=== PATIENT | female | born 1935 | race Caucasian/White ===

== ENCOUNTER 2018-05-23 16:24 | Emergency (ER) | payer MEDICARE, SELFPAY ==
[2018-05-23 16:50] VITALS: BP 150/89; PULSE 77; RESP 20; TEMP 36.8; O2SAT 98
--- NOTE | 2018-05-23 17:01 | ED_ITS ---
HPI - Animal Bite <AMBROCIO Biggs - Last Filed: 05/23/18 22:16> General Chief Complaint: Animal Bite Stated Complaint: dog bite right hand Time Seen by Provider: 05/23/18 17:01 Source: patient Mode of arrival: ambulatory Limitations: no limitations History of Present Illness HPI narrative: 83-year-old female history of hypertension is a nonsmoker here for complaint of animal bite to her right hand. She states that she was playing with her dog when her hand accidentally got caught on the dog's to last night. She reports having some redness to that area today. Bite was between the webbing between the thumb and the right index finger. She denies any drainage from the area. No fevers no chills. She denies any other injuries reported. She does not know her last tetanus shot. She reports that the dog's immunizations are up-to-date. No other injuries or concerns. Related Data Home Medications Medication Instructions Recorded Confirmed ACETAMINOPHEN 650 mg PO Q6HP PRN #0 tab 01/07/13 CALCIUM/VITAMIN D (OS-LAUREANO 500+D 1 ctb PO #0 ctb 01/07/13 500MG/400UNITS) [SALMON OIL W/OMAG 3] 3 tab PO QDAY #0 01/07/13 amlodipine 5 mg PO DAILY 05/23/18 05/23/18 losartan 50 mg PO BID 05/23/18 05/23/18 pravastatin 40 mg PO DAILY 05/23/18 05/23/18 Previous Rx's Medication Instructions Recorded acetaminophen-codeine 1 tab PO Q4HP PRN #15 tab 04/10/17 amoxicillin-pot clavulanate 1 tab PO BID #14 tab 05/23/18 [Augmentin] Allergies Allergy/AdvReac Type Severity Reaction Status Date / Time lisinopril [LISINOPRIL] AdvReac Mild COUGH Unverified 07/14/17 12:13 Review of Systems <AMBROCIO Biggs - Last Filed: 05/23/18 22:16> Constitutional Denies fatigue Eyes Denies change in vision, Denies eye discharge, Denies irritation and Denies loss of vision ENT Ears, Nose, Mouth, and Throat: Denies change in voice, Denies neck pain and Denies sore throat Cardiovascular Denies dyspnea and Denies dyspnea on exertion Respiratory Denies cough, Denies dyspnea, Denies dyspnea on exertion and Denies wheezing Gastrointestinal Gastrointestinal: Denies abdominal pain, Denies change in bowel habits, Denies diarrhea, Denies nausea and Denies vomiting Genitourinary Denies hematuria, Denies flank pain, Denies urinary incontinence and Denies urinary urgency Musculoskeletal Denies neck pain Comments: Dog bite right hand Integumentary/Breasts Denies pruritus, Denies erythema, Denies rash and Denies wounds Neurologic Denies confusion and Denies loss of vision Psychiatric Denies anxiety, Denies confusion, Denies depression, Denies homicidal ideation and Denies suicidal ideation Endocrine Denies fatigue and Denies flushing Hematologic/Lymphatic Denies easy bruising Allergic/Immunologic Denies wheezing PFSH <AMBROCIO Biggs - Last Filed: 05/23/18 22:16> Social History Smoking Status: Never smoker Social History Smoking Status: Never smoker Exam <AMBROCIO Biggs - Last Filed: 05/23/18 22:16> Initial Vital Signs Initial Vital Signs: Vital Signs Temperature 98.2 F 05/23/18 16:50 Pulse Rate 77 05/23/18 16:50 Respiratory Rate 20 05/23/18 16:50 Blood Pressure 150/89 H 05/23/18 16:50 Pulse Oximetry 98 05/23/18 16:50 Const General: cooperative and well developed Nutritional Appearance: well nourished Orientation: alert, awake, oriented x3 and not confused [facility] Mouth: oral mucosae normal and moist mucous membranes Eyes General: appearance normal, both eyes and all related structures Conjunctivae: conjunctivae normal Sclera: sclerae normal Pupils: PERRL EOM: EOM intact bilaterally Resp Effort & Inspection: normal respiratory effort, able to speak in complete sentences, no respiratory distress and no use of accessory muscles Auscultation: clear to auscultation bilaterally, no rales, no rhonchi and no wheezes Cardio Rate: regular rate Rhythm: regular rhythm Heart Sounds: no click, no gallops, no murmurs and no rubs Pulses: normal peripheral pulses Skin General: no rashes or lesions noted, No jaundice and No petechiae Neuro General: alert, oriented x3, gait normal and no focal motor deficits Speech: speech normal Extrem Other: 3-4 mm puncture wound to interdigital area between 1st and 2nd digits of right hand dorsal aspect. No induration and no fluctuance. Distal sensation is intact. Distal range of motion is intact. Erythema to the area. Distal cap r efill less than 2 sec. <Giselle Cain DO - Last Filed: 05/24/18 04:27> Initial Vital Signs Initial Vital Signs: Vital Signs Temperature 98.2 F 05/23/18 16:50 Pulse Rate 77 05/23/18 16:50 Respiratory Rate 20 05/23/18 16:50 Blood Pressure 150/89 H 05/23/18 16:50 Pulse Oximetry 98 05/23/18 16:50 Course <AMBROCIO Biggs - Last Filed: 05/23/18 22:16> Orders Ordered: Discontinued Medications Diphtheria/Tetanus/Acell Pertussis (Adacel) 0.5 ml IM .ONCE ONE Stop: 05/23/18 18:19 Last Admin: 05/23/18 18:39 Dose: 0.5 ml Vital Signs - 8 hr 05/23/18 16:50 05/23/18 19:33 Temperature 98.2 F 98.4 F Pulse Rate 77 77 Respiratory Rate 20 17 Blood Pressure 150/89 H Blood Pressure [Left Arm] 137/78 Pulse Oximetry 98 96 <Giselle Cain DO - Last Filed: 05/24/18 04:27> Orders Ordered: Discontinued Medications Diphtheria/Tetanus/Acell Pertussis (Adacel) 0.5 ml IM .ONCE ONE Stop: 05/23/18 18:19 Last Admin: 05/23/18 18:39 Dose: 0.5 ml Vital Signs - 8 hr 05/23/18 16:50 05/23/18 19:33 Temperature 98.2 F 98.4 F Pulse Rate 77 77 Respiratory Rate 20 17 Blood Pressure 150/89 H Blood Pressure [Left Arm] 137/78 Pulse Oximetry 98 96 MDM - Animal Bite <AMBROCIO Biggs - Last Filed: 05/23/18 22:16> Imaging Data Right hand : Radiologist's impression: [address] [address] XRay Report Signed Patient: Amna Chin EMR#: [id number] : [id number] Age/Sex: 83 / FDate of Service: 05/23/18 Loc: ED Accession Number: [id number] Procedure: XR hand RT min 3V Ordering Provider: Esvin Elena PROCEDURE: XR HAND RT MIN 3V INDICATIONS: Dog bite right hand TECHNIQUE: 3 views of the hand(s) acquired. COMPARISON: None. FINDINGS: Bones: No fractures or dislocations. Carpal bones are normally aligned. No suspicious bony lesions. 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 Soft tissues: No suspicious soft tissue calcifications. No radiopaque foreign bodies. IMPRESSION: No radiopaque foreign bodies. Dictated by: Camilla Ward M.D. on 05/23/2018 at 19:10 Approved by: Camilla Ward M.D. on 05/23/2018 at 19:12 [facility] Narrative Medical decision making narrative: X-ray the right hand was obtained was negative for any foreign bodies or fractures. Tetanus was updated in the emergency room today. She is covered for dog bite with Augmentin. [id number] Tylenol as needed for any discomfort. Follow up with primary care provider in the next few days for re-evaluation. For any worsening symptoms return to the emergency room. Discharge Plan Departure Patient Disposition: Home Clinical Impression: Dog bite Qualifiers: Encounter type: initial encounter Qualified Code(s): W54.0XXA - Bitten by dog, initial encounter Discharge Date/Time: 05/23/18 19:42 Interventions: ED Discharge Assessment Last Done: 05/23/18 19:37 Instructions: DI for Dog Bite Activity Restrictions/Additional Instructions: X-ray the right hand was obtained was negative for any fractures or foreign bodies. Tetanus was updated in the emergency room today. You are prescribed antibiotic to protect against an infection use as directed. Follow up with primary care provider next few days for re-evaluation. Use [id number] Tylenol as needed for any discomfort. For any worsening symptoms return to the emergency room. Prescriptions: New amoxicillin-pot clavulanate [Augmentin] 875-125 mg tablet 1 tab PO BID Qty: 14 RF: 0 No Action ACETAMINOPHEN 650 mg PO Q6HP PRNQty: 0 RF: 0 [SALMON OIL W/OMAG 3] 3 tab PO QDAY Qty: 0 RF: 0 CALCIUM/VITAMIN D (OS-LAUREANO 500+D 500MG/400UNITS) 1 ctb PO Qty: 0 RF: 0 acetaminophen-codeine 30 MG/300 MG tablet 1 tab PO Q4HP PRNQty: 15 RF: 0 losartan 50 mg tablet 50 mg PO BID RF: 0 pravastatin 40 mg tablet 40 mg PO DAILY RF: 0 amlodipine 5 mg tablet 5 mg PO DAILY RF: 0 Referrals: Martínez Lake MD [Primary Care Provider] - <Giselle Cain DO - Last Filed: 05/24/18 04:27> Cosign ED Attending Malikature Attestation: I was immediately available in the department for consultation. Documentation has been reviewed. I agree with assessment and plan.
--- NOTE | 2018-05-23 18:17 | DI.RAD.S_ITS ---
PROCEDURE: XR HAND RT MIN 3V INDICATIONS: Dog bite right hand TECHNIQUE: 3 views of the hand(s) acquired. COMPARISON: None. FINDINGS: Bones: No fractures or dislocations. Carpal bones are normally aligned. No suspicious bony lesions. 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 Soft tissues: No suspicious soft tissue calcifications. No radiopaque foreign bodies. IMPRESSION: No radiopaque foreign bodies. Dictated by: Camilla Ward M.D. on 05/23/2018 at 19:10 Approved by: Camilla Ward M.D. on 05/23/2018 at 19:12
[2018-05-23] MEDS: TET,DIPH,PERTUSS(ACELL),VAC/PF 0.5 ML SYRINGE IM (18:39)
[2018-05-23 19:33] VITALS: BP 137/78; PULSE 77; RESP 17; TEMP 36.9; O2SAT 96
--- NOTE | 2018-05-23 19:39 | PC.NURSE ---
No acute distress. Bandaid and bacitracin applied to wound. Bacitracin given for home use.
== END 2018-05-23 19:42 | disposition home or self-care (01) ==
PROVIDERS: Emergency Provider Nurse Practitioner Family; Family Provider Internal Medicine; PCP Internal Medicine
DX: S61.451A Open bite of right hand, initial encounter (principal); W54.0XXA Bitten by dog, initial encounter
CPT/HCPCS: 73130; 90471; 99282; 99283; 90715

== ENCOUNTER 2018-07-01 11:51 | Emergency (ER) | payer MEDICARE, SELFPAY ==
[2018-07-01 12:06] VITALS: BP 150/81; PULSE 80; RESP 14; TEMP 36.7; O2SAT 98
--- NOTE | 2018-07-01 15:10 | ED.ALLEREA ---
HPI - Allergic Reaction General Chief complaint: Allergic Reaction Stated complaint: Swollen face Time Seen by Provider: 07/01/18 15:08 Source: patient and family () Mode of arrival: ambulatory Limitations: no limitations History of Present Illness HPI narrative: This is an 83-year-old female comes in with complaint of swelling of the right side of her face. Patient and her both state that the swelling seemed to show up down by her lower jaw and has slowly worked its way upwards towards her eye. She has a little bit of discoloration underneath her eye. She has not had any fevers. She is not having any swelling of her mouth, lips or oropharynx. She has not had any hoarseness or changes to her voice. She states it is a little bit tender but not significantly so. She feels a little bit itchy on that side. She has not had any new contacts, soaps lotions or other changes. She was recently visiting [place] and flew back yesterday. She has not had similar symptoms in the past with her face but she has had swelling in her throat and mouth before. She does not take an ALONDRA inhibitor. She has not noticed if she is having any dry mouth. She has not had any sinus pressure or discomfort. No dental pain. Related Data Home Medications Medication Instructions Recorded Confirmed ACETAMINOPHEN 650 mg PO Q6HP PRN #0 tab 01/07/13 CALCIUM/VITAMIN D (OS-LAUREANO 500+D 1 ctb PO #0 ctb 01/07/13 500MG/400UNITS) [SALMON OIL W/OMAG 3] 3 tab PO QDAY #0 01/07/13 amlodipine 5 mg PO DAILY 05/23/18 07/01/18 losartan 50 mg PO BID 05/23/18 07/01/18 pravastatin 40 mg PO DAILY 05/23/18 07/01/18 Previous Rx's Medication Instructions Recorded acetaminophen-codeine 1 tab PO Q4HP PRN #15 tab 04/10/17 amoxicillin-pot clavulanate 1 tab PO BID #20 tab 07/01/18 [Augmentin] prednisone See Rx Instructions .ROUTE 07/01/18 .COMPLEX #12 tab Allergies Allergy/AdvReac Type Severity Reaction Status Date / Time lisinopril [LISINOPRIL] AdvReac Mild COUGH Verified 07/01/18 12:10 Review of Systems Review of Systems ROS Unobtainable: All systems reviewed & are unremarkable except as noted in HPI and below Constitutional Denies fever(s) ENT Ears, Nose, Mouth, and Throat: Reports as per HPI, Denies change in voice, Denies dental pain, Denies dry mouth, Denies otalgia, Reports facial pain (Very mild), Denies hoarseness, Denies lip swelling, Denies mouth lesions, Denies nasal congestion, Denies nasal discharge, Denies neck pain, Denies nose pain, Denies post nasal drip, Denies sinus pain, Denies sinus pressure, Denies sore throat, Denies throat swelling, Denies tongue swelling and Reports other (facial swelling, right jaw moving up towards eye) Cardiovascular Denies chest pain, Denies syncope, Denies lightheadedness and Denies dyspnea Respiratory Denies chest congestion, Denies dyspnea, Denies stridor and Denies wheezing Gastrointestinal Gastrointestinal: Denies abdominal pain, Denies change in bowel habits, Denies diarrhea, Denies nausea and Denies vomiting Musculoskeletal Denies neck pain Integumentary/Breasts Denies rash, Denies unusual bruising and Denies wounds Neurologic Denies syncope Allergic/Immunologic Denies lip swelling, Denies throat swelling, Denies tongue swelling and Denies wheezing PFSH Social History Smoking Status: Never smoker Social History Smoking Status: Never smoker Exam Narrative Exam Narrative: GEN: well nourished, well appearing female, alert and oriented x 3, patient appears to be in mild distress. HEENT: Atraumatic, pupils are equal round reactive to light, extraocular movements are intact, nares are clear, TMs are clear with no fluid, there is no conjunctival pallor. Throat is clear without any exudates, erythema, tonsillar enlargement or uvular deviation, patient has some mild facial swelling from the right mandibular region extending up towards the right eye, there is a little bit of slight discoloration underneath the right eye patient has some mild tenderness below the mandible. Um there is no discharge from the salivary duct. Patient does not have any swelling of lips, tongue or oropharynx. No hives or other rash noted. no hoarseness. HEART: Regular rate and rhythm without murmur, clicks, rubs. LUNGS:Lungs clear to auscultation, no wheezes, rales, crackles, chest moves symmetrically ABD:bowel sounds normal, soft, non-tender, no guarding, rebound, rigidity, no masses noted, no hepatosplenomegaly MSCL: Non-tender, full range of motion, normal gait NEURO:CN 2-12 intact, sensation normal Initial Vital Signs Initial Vital Signs: Vital Signs Temperature 98.1 F 07/01/18 12:06 Pulse Rate 80 07/01/18 12:06 Respiratory Rate 14 07/01/18 12:06 Blood Pressure 150/81 H 07/01/18 12:06 Pulse Oximetry 98 07/01/18 12:06 Course Orders Ordered: Discontinued Medications Prednisone (Deltasone) 40 mg PO NOW ONE Stop: 07/01/18 15:26 Last Admin: 07/01/18 15:30 Dose: 40 mg Vital Signs - 8 hr 07/01/18 12:06 07/01/18 15:39 Temperature 98.1 F Pulse Rate 80 78 Respiratory Rate 14 17 Blood Pressure 150/81 H Blood Pressure [Left Arm] 161/82 H Pulse Oximetry 98 97 MDM - Allergic Reaction MDM Narrative Medical decision making narrative: Discussed with patient the concerns would be for cellulitis, abscess whether infection could come from dental, sialadenitis, periorbital or other causes. Patient could be having allergic reaction or angioedema although it is more the skin and side of her face and her airway and oropharynx are not involved. I discussed with patient I suspect she may have some sialadenitis potentially of the salivary gland as patient tenderness started on the lower jaw been moving upwards according to her and her significant other. She is not having any dental pain or sinus discomfort. Discussed starting on some antibiotics. Also discussed doing a short course of steroids to help with any swelling and based on suspicion of possible sialadenitis lemon drop or very turbid candies to help stimulate salivary secretions. Discussed signs and symptoms to watch for and reasons to return patient and are comfortable with this plan. Discharge Plan Departure Patient Disposition: Home Clinical Impression: Sialadenitis Discharge Date/Time: 07/01/18 15:50 Interventions: ED Discharge Assessment Last Done: 07/01/18 15:50 Instructions: Parotitis Activity Restrictions/Additional Instructions: Follow up in the next week for recheck. Take antibiotics until gone. Continue steroids once daily until gone. You prescriptions were sent to [facility]. Suck on tart candies such as lemon candies to cause increased saliva production. Return to ER for fevers greater than 100.4F, worsening swelling of the face, new redness of the face, swelling of the throat, mouth or lips, hoarseness or difficulty with speech, vomiting, lightheadedness or passing out or other new or concerning symptoms. Prescriptions: New prednisone 10 mg tablet See Rx Instructions .ROUTE .COMPLEX Qty: 12 RF: 0 amoxicillin-pot clavulanate [Augmentin] 875-125 mg tablet 1 tab PO BID Qty: 20 RF: 0 No Action ACETAMINOPHEN 650 mg PO Q6HP PRNQty: 0 RF: 0 [SALMON OIL W/OMAG 3] 3 tab PO QDAY Qty: 0 RF: 0 CALCIUM/VITAMIN D (OS-LAUREANO 500+D 500MG/400UNITS) 1 ctb PO Qty: 0 RF: 0 acetaminophen-codeine 30 MG/300 MG tablet 1 tab PO Q4HP PRNQty: 15 RF: 0 losartan 50 mg tablet 50 mg PO BID RF: 0 pravastatin 40 mg tablet 40 mg PO DAILY RF: 0 amlodipine 5 mg tablet 5 mg PO DAILY RF: 0 Referrals: Martínez Lake MD [Primary Care Provider] -
[2018-07-01] MEDS: predniSONE 20 MG TABLET 40 MG PO (15:30)
--- NOTE | 2018-07-01 15:33 | PC.NURSE ---
Pt w/ right > left facial swelling. No airway compromise. No known allergen exposure. States right side of face feels 'tingly'. Easy work of breathing.
[2018-07-01 15:39] VITALS: BP 161/82; PULSE 78; RESP 17; O2SAT 97
== END 2018-07-01 15:50 | disposition home or self-care (01) ==
PROVIDERS: Emergency Provider Emergency Medicine; Family Provider Internal Medicine; PCP Internal Medicine
DX: K11.20 Sialoadenitis, unspecified (principal)
CPT/HCPCS: 99282; 99283

== ENCOUNTER → 2019-01-30 19:27 | Outpatient (CLI) | payer MEDICARE, SELFPAY ==
[2019-01-30 19:48] LABS: Influenza A and B by PCR Rapid Negative (Negative)
== END ==
PROVIDERS: Family Provider Internal Medicine; PCP Internal Medicine; Visit Provider Physician Assistant
DX: R68.89 Other general symptoms and signs (principal)
CPT/HCPCS: 87502

== ENCOUNTER 2020-04-05 14:37 | Emergency (ER) | payer MEDICARE, SELFPAY ==
[2020-04-05 14:43] VITALS: BP 140/65; PULSE 84; RESP 20; TEMP 36.3; O2SAT 95; BMI 25.3
[2020-04-05 15:17] LABS: COVID19 -Nasal RAPID Negative (Negative)
--- NOTE | 2020-04-05 19:46 | ED.URI ---
HPI - URI/Sore Throat General Chief Complaint: Upper Respiratory Symptoms Stated Complaint: runny nose,cough, wants a covid test Time Seen by Provider: 04/05/20 15:17 Source: patient Mode of arrival: Family Vehicle Limitations: no limitations History of Present Illness HPI Narrative: 84F non smoker with history of HTN presents with her and is requesting a COVID test. She said she has had runny nose, nasal congestion and sneezing for the past 2 days. She denies any fever chills. She has no sore throat cough or shortness of breath. She has had no GI symptoms such as nausea, vomiting or diarrhea. She denies any exposure to persons known to have COVID. MD Complaint: rhinorrhea and nasal congestion Onset (ago): minute(s) Duration: constant Severity: mild Relieving factors: nothing Exacerbating factors: nothing Description of mucous: clear Able to tolerate fluids by mouth: Yes Associated symptoms: denies other symptoms Related Data Home Medications Medication Instructions Recorded Confirmed ACETAMINOPHEN 650 mg PO Q6HP PRN #0 tab 01/07/13 CALCIUM/VITAMIN D (OS-LAUREANO 500+D 1 ctb PO #0 ctb 01/07/13 500MG/400UNITS) [SALMON OIL W/OMAG 3] 3 tab PO QDAY #0 01/07/13 amlodipine 5 mg PO DAILY 05/23/18 07/01/18 losartan 50 mg PO BID 05/23/18 07/01/18 pravastatin 40 mg PO DAILY 05/23/18 07/01/18 Previous Rx's Medication Instructions Recorded acetaminophen-codeine 1 tab PO Q4HP PRN #15 tab 04/10/17 prednisone See Rx Instructions .ROUTE 07/01/18 .COMPLEX #12 tab Allergies Allergy/AdvReac Type Severity Reaction Status Date / Time lisinopril [LISINOPRIL] AdvReac Mild COUGH Verified 04/05/20 14:53 Review of Systems Constitutional Constitutional: Denies chills, Denies fatigue, Denies fever(s), Denies frequent falls, Denies lethargy and Denies weakness Eyes Eyes: Denies change in vision, Denies eye discharge, Denies irritation and Denies loss of vision ENT Ears, Nose, Mouth, and Throat: Denies change in voice, Denies dizziness, Reports nasal congestion, Reports nasal discharge, Denies neck pain, Denies sore throat and Denies throat swelling Cardiovascular Cardiovascular: Denies chest pain, Denies irregular heart rhythm, Denies lightheadedness, Denies palpitations, Denies dyspnea, Denies dyspnea on exertion and Denies orthopnea Respiratory Respiratory: Denies dyspnea, Denies dyspnea on exertion and Denies wheezing Gastrointestinal Gastrointestinal: Denies abdominal pain, Denies change in bowel habits, Denies diarrhea, Denies nausea and Denies vomiting Musculoskeletal Musculoskeletal: Denies neck pain and Denies numbness Integumentary/Breasts Skin/Breast: Denies pruritus, Denies erythema, Denies rash and Denies wounds Neurologic Neurologic: Denies behavioral changes, Denies confusion, Denies dizziness, Denies frequent falls, Denies loss of vision, Denies numbness and Denies weakness Psychiatric Psychiatric: Denies anxiety, Denies behavioral changes, Denies confusion, Denies depression, Denies homicidal ideation and Denies suicidal ideation Endocrine Endocrine: Denies fatigue, Denies flushing and Denies palpitations Hematologic/Lymphatic Hematologic/Lymphatic: Denies easy bruising Allergic/Immunologic Allergic/Immunologic: Denies urticaria, Denies throat swelling and Denies wheezing Patient History Social History Smoking Status: Never smoker Smoking Status: Never smoker alcohol intake frequency: holidays/special occasions only Substance Use Type: does not use Exam Narrative Exam Narrative: GEN: AOx3 and in mild distress EYES: Pupils are equal, round, and reactive to light and accommodation. Extraoccular muscles are intact bilaterally. There is no subconjunctival hemorrhage or exudate. ENT: Clear nasal drainage bilateral nares. Mild posterior pharyngeal drip. No erythema, swelling or exudate CHEST: Lungs are clear to auscultation bilaterally and free of wheezes, rales, or rhonchi. Heart rate is regular rhythm, there are no murmurs, clicks, rubs, or gallops. There is no chest wall tenderness. ABD: Abdomen is soft and nontender. There is no guarding or rebound. Bowel sounds are normal in all 4 quadrants. There is no mass or organomegaly. EXT: Full painless ROM of all extremities with no loss of sensation or strength. SKIN: Warm, pink, and dry. No erythema or rash Initial Vital Signs Initial Vital Signs: Vital Signs Temperature 97.4 F L 04/05/20 14:43 Pulse Rate 84 04/05/20 14:43 Respiratory Rate 20 04/05/20 14:43 Blood Pressure 140/65 04/05/20 14:43 Pulse Oximetry 95 04/05/20 14:43 Course Orders Ordered: ED Orders 04/05/20 14:43 COVID19 Stat Vital Signs Vital signs: Vital Signs - 8 hr 04/05/20 14:43 Temperature 97.4 F L Pulse Rate 84 Respiratory Rate 20 Blood Pressure 140/65 Pulse Oximetry 95 MDM - URI/Sore Throat Lab Data Labs: Lab Results 04/05/20 Range/Units 14:43 SARS-CoV-2 (PCR) Negative (Negative) Discharge Plan Departure Patient Disposition: Home Clinical Impression: Upper respiratory virus Instructions: DI for Viral Upper Respiratory Infection -- Adult, Can COVID-19 be prevented? Activity Restrictions/Additional Instructions: *You have been diagnosed with [upper respiratory symptoms consistent with viral infection or seasonal allergies. Your COVID test was negative] *What to do: *Take medications as directed: Including [id number] antihistamine *Follow up with your primary care provider in 2-3 days, call for an appointment. Let them know you were seen in the Emergency Department and that we ask that you be seen in follow up *Return to ER if you should have any new, worsening or concerning symptoms, such as [shortness of breath, fever greater than 101 F, shaking chills or other bothersome symptoms] Prescriptions: No Action ACETAMINOPHEN 650 mg PO Q6HP PRNQty: 0 RF: 0 [SALMON OIL W/OMAG 3] 3 tab PO QDAY Qty: 0 RF: 0 CALCIUM/VITAMIN D (OS-LAUREANO 500+D 500MG/400UNITS) 1 ctb PO Qty: 0 RF: 0 acetaminophen-codeine 30 MG/300 MG tablet 1 tab PO Q4HP PRNQty: 15 RF: 0 losartan 50 mg tablet 50 mg PO BID RF: 0 pravastatin 40 mg tablet 40 mg PO DAILY RF: 0 amlodipine 5 mg tablet 5 mg PO DAILY RF: 0 prednisone 10 mg tablet See Rx Instructions .ROUTE .COMPLEX Qty: 12 RF: 0 Referrals: Martínez Lake MD [Primary Care Provider] -
== END 2020-04-05 15:42 | disposition home or self-care (01) ==
PROVIDERS: Emergency Provider Emergency Medicine; Family Provider Internal Medicine; PCP Internal Medicine
DX: J06.9 Acute upper respiratory infection, unspecified (principal); R09.81 Nasal congestion; Z20.822 Contact with and (suspected) exposure to COVID-19
CPT/HCPCS: 87635; 99281; 99282

== ENCOUNTER → 2020-05-03 10:51 | Outpatient (CLI) | payer MEDICARE, SELFPAY ==
[2020-05-03] MEDS: COVID-19 VACC #1, MRNA(MOD) 100 MCG/0.5 ML VIAL IM (10:57)
== END ==
PROVIDERS: Family Provider Internal Medicine; PCP Internal Medicine; Visit Provider Internal Medicine
DX: Z23 Encounter for immunization (principal)
CPT/HCPCS: 0011A; 91301

== ENCOUNTER → 2020-05-31 08:12 | Outpatient (CLI) | payer MEDICARE, SELFPAY ==
[2020-05-31] MEDS: COVID-19 VACC #2, MRNA(MOD) 100 MCG/0.5 ML VIAL IM (08:15)
== END ==
PROVIDERS: Family Provider Internal Medicine; PCP Internal Medicine; Visit Provider Internal Medicine
DX: Z23 Encounter for immunization (principal)
CPT/HCPCS: 0012A; 91301

== ENCOUNTER 2021-11-01 18:53 | Emergency (ER) | payer MEDICARE, SELFPAY ==
[2021-11-01 19:41] VITALS: BP 165/72; PULSE 99; RESP 18; TEMP 36.8; O2SAT 95; BMI 24.2
[2021-11-01 20:23] LABS: COVID19 -Nasal RAPID POSITIVE (Negative)
[2021-11-01 21:25] LABS: Add Manual Diff / Slide Review NO; Basophils Absolute Auto 0 /uL (0-100); Basophils Percent Auto 0.6 % (0-2); Eosinophils Absolute Auto 0 /uL (0-450); Eosinophils Percent Auto 0.4 % (2-4); Hematocrit 39.2 % (36-46); Hemoglobin 13.4 g/dL (12.0-16.0); Lymphocytes Absolute Auto 800 /uL (1100-4500); Lymphocytes Percent Auto 10.9 % (25-40); Mean Corpuscular HGB Conc 34.3 % (30-36); Mean Corpuscular Volume 90.4 fL (80-100); Monocytes Absolute Auto 900 /uL (0-900); Monocytes Percent Auto 11.9 % (3-14); Neutrophils Absolute Auto 5600 /uL (1500-7000); Neutrophils Percent Auto 76.2 % (50-75); Platelet Count 237 X10^3/uL (150-400); Red Blood Cell Count 4.34 X10^6/uL (4.0-5.2); Red Cell Distribution Width 13.6 % (11.6-14.8); White Blood Cell Count 7.4 X10^3/uL (4.5-11.0)
[2021-11-01 21:26] LABS: Alanine Aminotransferase 18 IU/L (<35); Albumin 4.6 g/dL (3.5-5.0); Albumin Globulin Ratio 1.4 (1.0-2.8); Alkaline Phosphatase 70 U/L (38-126); Aspartate Aminotransferase 28 IU/L (14-36); Bilirubin Total 0.5 mg/dL (0.2-1.3); Blood Urea Nitrogen 11 mg/dL (7-17); Calcium 8.9 mg/dL (8.4-10.2); Carbon Dioxide 27 mmol/L (22-32); Chloride 97 mmol/L (98-107); Estimated Glomerular Filt Rate > 60 mL/min (>60); Globulin 3.3 g/dL (1.7-4.1); Glucose 118 mg/dL (80-110); HEMOLYSIS < 15 (0-50); Potassium 3.8 mmol/L (3.4-5.1); Sodium 134 mmol/L (137-145); Total Protein 7.9 g/dL (6.3-8.2)
--- NOTE | 2021-11-01 21:53 | ED_ITS ---
HPI - URI/Sore Throat General Chief Complaint: Upper Respiratory Symptoms Stated Complaint: COVID + Time Seen by Provider: 11/01/21 21:39 Source: patient Mode of arrival: Ambulatory History of Present Illness HPI Narrative: Patient here with . Complains 4 days of cough cold congestion. Had vomiting today. Body aches and chills. Tested positive for COVID. Family doctor sent patient here for laboratory studies. Also to inquire about likely Paxlovid. Denies any dyspnea. Does feel weak and tired. No history of heart attack strokes or diabetes or lung disease. Not requiring oxygen. Related Data Home Medications Medication Instructions Recorded Confirmed ACETAMINOPHEN 650 mg PO Q6HP PRN #0 tabs 01/07/13 CALCIUM/VITAMIN D (OS-LAUREANO 500+D 1 ctb PO ##0 01/07/13 500MG/400UNITS) [SALMON OIL W/OMAG 3] 3 tab PO QDAY ##0 01/07/13 amlodipine 5 mg tablet 5 mg PO DAILY 05/23/18 07/01/18 losartan 50 mg tablet 50 mg PO BID 05/23/18 07/01/18 pravastatin 40 mg tablet 40 mg PO DAILY 05/23/18 07/01/18 Previous Rx's Medication Instructions Recorded acetaminophen 300 mg-codeine 30 mg 1 tab PO Q4HP PRN #15 tabs 04/10/17 tablet prednisone 10 mg tablet See Rx Instructions .Route 07/01/18 .COMPLEX #12 tabs ondansetron 4 mg disintegrating 4 mg PO Q8H PRN nausea and 11/01/21 tablet vomiting #10 tabs Allergies Allergy/AdvReac Type Severity Reaction Status Date / Time lisinopril [LISINOPRIL] AdvReac Mild COUGH Verified 04/05/20 14:53 Review of Systems Review of Systems Narrative: GENERAL: Positive for chills, fatigue, malaise, fever, sweats. HEENT: Denies sinus pain, ear pain, sore throat RESPIRATORY: Denies dyspnea, positive for cough CARDIOVASCULAR: Denies chest pain, palpitations GASTROINTESTINAL: Positive for nausea, vomiting, negative for abdominal pain : Denies dysuria, frequency, hematuria MUSCULOSKELETAL: Positive for muscle or bony pain SKIN: Denies rash, skin lesions NEUROLOGIC: Denies weakness, numbness ROS Unobtainable: All systems reviewed & are unremarkable except as noted in HPI and below Patient History Social History Smoking Status: Never smoker Smoking Status: Never smoker alcohol intake frequency: holidays/special occasions only Substance Use Type: does not use Exam Narrative Exam Narrative: GENERAL: in no distress, not toxic not dyspneic HEAD: Normocephalic. EYES: Pupils equal round No scleral icterus. ENT: Mucous membranes moist. NECK: Trachea midline. CARDIOVASCULAR: Regular rate and rhythm without murmurs RESPIRATORY: Clear to auscultation. Breath sounds equal bilaterally. No wheezes, rales, or rhonchi. Speaking full sentences. No respiratory distress GASTROINTESTINAL: Abdomen soft, non-tender bowel sounds present no peritoneal signs EXTREMITIES: No gross deformities. BACK: No flank tenderness. NEURO: AOx4. SKIN: Warm and dry PSYCH: Not anxious, is cooperative Initial Vital Signs Initial Vital Signs: Vital Signs Temperature 98.3 F 11/01/21 19:41 Pulse Rate 99 H 11/01/21 19:41 Respiratory Rate 18 11/01/21 19:41 Blood Pressure 165/72 H 11/01/21 19:41 Pulse Oximetry 95 11/01/21 19:41 Oxygen Delivery Method 11/01/21 19:41 Course Course Course Narrative: No new issues during course of stay Orders Ordered: ED Orders 11/01/21 21:54 XR chest 1V Stat Discontinued Medications Sodium Chloride (Normal Saline 0.9%) 1,000 mls @ 1,000 mls/hr IV BOLUS ONE Stop: 11/01/21 22:51 Last Infusion: 11/01/21 23:21 Dose: 0 mls/hr Documented By: Admin: 11/01/21 22:14 Dose: 1,000 mls/hr Documented By: AT Ondansetron HCl (Ondansetron 4 Mg/2 Ml Inj) 4 mg IV NOW ONE Stop: 11/01/21 21:53 Last Admin: 11/01/21 22:14 Dose: 4 mg Documented By: AT Reevaluation(s) Reevaluation #1: Reviewed with patient and regarding Paxlovid, it is EUA, an experimental use administration. Risks and benefits reviewed with them. At this time they do not desire to have this medication. They would like to wait through the weekend and contact family doctor in [place] on Wednesday. They do desire IV fluids and Zofran. Time: 21:58 Reevaluation #2: Patient feeling much better after IV fluids and Zofran. Reviewed x-ray with him. They desire discharge home. No prescription other than Zofran Time: 23:17 Vital Signs Vital signs: Vital Signs - 8 hr 11/01/21 19:41 Temperature 98.3 F Pulse Rate 99 H Respiratory Rate 18 Blood Pressure 165/72 H Pulse Oximetry 95 Oxygen Delivery Method Room Air MDM - URI/Sore Throat Differential Diagnosis Differential diagnosis: Likely upper respiratory infection, viral infection and other (Pneumonia/COVID infection) Lab Data Result diagrams: 11/01/21 20:50 11/01/21 20:50 Labs: Lab Results 11/01/21 11/01/21 11/01/21 Range/Units 19:48 20:50 20:50 WBC 7.4 (4.5-11.0) X10^3/uL RBC 4.34 (4.0-5.2) X10^6/uL Hgb 13.4 (12.0-16.0) g/dL Hct 39.2 (36-46) % MCV 90.4 (80-100) fL MCH 31.0 (26-34) PG MCHC 34.3 (30-36) % RDW 13.6 (11.6-14.8) % Plt Count 237 (150-400) X10^3/uL Neut % (Auto) 76.2 H (50-75) % Lymph % (Auto) 10.9 L (25-40) % Roosevelt % (Auto) 11.9 (3-14) % Eos % (Auto) 0.4 L (2-4) % Baso % (Auto) 0.6 (0-2) % Neut # (Auto) 5600 (9648-6683) /uL Lymph # (Auto) 800 L (4278-7224) /uL Roosevelt # (Auto) 900 (0-900) /uL Eos # (Auto) 0 (0-450) /uL Baso # (Auto) 0 (0-100) /uL Sodium 134 L (137-145) mmol/L Potassium 3.8 (3.4-5.1) mmol/L Chloride 97 L (98-107) mmol/L Carbon Dioxide 27 (22-32) mmol/L BUN 11 (7-17) mg/dL Creatinine 0.55 (0.52-1.04) mg/dL Estimated GFR > 60 (>60) mL/min BUN/Creatinine Ratio 20.0 (6-22) Glucose 118 H (80-110) mg/dL Calcium 8.9 (8.4-10.2) mg/dL Total Bilirubin 0.5 (0.2-1.3) mg/dL AST 28 (14-36) IU/L ALT 18 (<35) IU/L Alkaline Phosphatase 70 (38-126) U/L Total Protein 7.9 (6.3-8.2) g/dL Albumin 4.6 (3.5-5.0) g/dL Globulin 3.3 (1.7-4.1) g/dL Albumin/Globulin Ratio 1.4 (1.0-2.8) SARS-CoV-2 (PCR) Positive H (Negative) Imaging Data Chest x-ray: Radiologist's Impression: [address] [address] XRay Report Signed Patient: Amna Chin MR#: [id number] : 1935 Acct:[id number] Age/Sex: 86 / F Date of Service: 11/01/21 Loc: Accession Number: [id number] ?? Procedure: XR chest 1V Ordering Provider: Darci Johnson MD PROCEDURE:? XR CHEST 1V ? INDICATIONS:? Cough/cold ? TECHNIQUE:? One view of the chest was acquired.? ? COMPARISON:? None. ? FINDINGS:? ? Surgical changes and devices:? None.? ? Lungs and pleura:? Lungs are clear.? No pleural effusions or pneumothorax.? ? Mediastinum:? Mediastinal contours appear normal.? Heart size is normal.? ? Bones and chest wall:? No suspicious bony lesions.? Overlying soft tissues appear unremarkable.? ? IMPRESSION:? No acute cardiopulmonary process demonstrated radiographically. ? ? Dictated by: Jericho Burnett M.D. on 11/01/2021 at 22:34 ? ? Approved by: Jericho Burnett M.D. on 11/01/2021 at 22:35 ? MDM Narrative Medical decision making narrative: Appropriate for discharge home. Exam and laboratory studies and imaging are reassuring. No hypoxia. No pneumonia. Patient and do not want Paxlovid, the desire to follow up with family doctor on Wednesday in 2 days. Return precautions reviewed with them. Zofran prescribed. They desire discharge home Discharge Plan Departure Patient Disposition: Home Clinical Impression: COVID-19 Instructions: DI for COVID-19 (Suspected or Confirmed ) Activity Restrictions/Additional Instructions: Keep well hydrated. Continue Tylenol for any fever body aches and chills. See family doctor on Wednesday for re-evaluation. Return if worse if any questions or concerns. Return if any trouble breathing. Prescription for Zofran/nausea medication has been provided for you Prescriptions: New ondansetron 4 mg tablet,disintegrating 4 mg PO Q8H PRN (Reason: nausea and vomiting) Qty: 10 0RF No Action ACETAMINOPHEN 650 mg PO Q6HP PRNQty: 0 [SALMON OIL W/OMAG 3] 3 tab PO QDAY Qty: 0 CALCIUM/VITAMIN D (OS-LAUREANO 500+D 500MG/400UNITS) 1 ctb PO Qty: 0 acetaminophen-codeine 30 MG/300 MG tablet 1 tab PO Q4HP PRNQty: 15 0RF losartan 50 mg tablet 50 mg PO BID pravastatin 40 mg tablet 40 mg PO DAILY amlodipine 5 mg tablet 5 mg PO DAILY prednisone 10 mg tablet See Rx Instructions .ROUTE .COMPLEX Qty: 12 0RF Rx Instructions: Take 3 tablets daily x 2 days, then 2 tablets daily x 2 days, then 1 tablet x 2 days. Referrals: Martínez Lake MD [Primary Care Provider] - Visit Report Forms: Patient Portal/API
--- NOTE | 2021-11-01 21:54 | DI.RAD.S_ITS ---
PROCEDURE: XR CHEST 1V INDICATIONS: Cough/cold TECHNIQUE: One view of the chest was acquired. COMPARISON: None. FINDINGS: Surgical changes and devices: None. Lungs and pleura: Lungs are clear. No pleural effusions or pneumothorax. Mediastinum: Mediastinal contours appear normal. Heart size is normal. Bones and chest wall: No suspicious bony lesions. Overlying soft tissues appear unremarkable. IMPRESSION: No acute cardiopulmonary process demonstrated radiographically. Dictated by: Jericho Burnett M.D. on 11/01/2021 at 22:34 Approved by: Jericho Burnett M.D. on 11/01/2021 at 22:35
[2021-11-01] MEDS: SODIUM CHLORIDE 0.9% 1,000 ML 1000 ML IV (22:14)
[2021-11-01] MEDS: ONDANSETRON 4 MG/2 ML INJ IV (22:14)
== END 2021-11-01 23:24 | disposition home or self-care (01) ==
PROVIDERS: Emergency Provider Emergency Medicine; Family Provider Internal Medicine; PCP Internal Medicine
DX: U07.1 COVID-19 (principal)
CPT/HCPCS: 36415; 71045; 80053; 85025; 87635; 96361; 96374; 99284; C9803; J2405

== ENCOUNTER 2022-03-24 11:44 | Emergency (ER) | payer MEDICARE, SELFPAY ==
[2022-03-24 11:49] VITALS: BP 161/77; PULSE 109; RESP 18; TEMP 36.8; O2SAT 96; BMI 25.0
--- NOTE | 2022-03-24 14:58 | DI.RAD.S_ITS ---
PROCEDURE: XR ACUTE ABDOMEN SERIES INDICATIONS: persistant vomiting TECHNIQUE: One view chest and two views of the abdomen were acquired. COMPARISON: [facility], CT, ABDOMEN/PELVIS WITH CONTRAST, 09/12/2013, 17:22. FINDINGS: Surgical changes and devices: There is prior right shoulder arthroplasty. Chest: Lungs are clear. Heart size is normal. No pleural effusions. No pneumoperitoneum. Abdomen: Bowel gas pattern is nonobstructive. Large amount of fecal matter throughout the colon is seen extending to rectum. Multiple round calcifications are seen projecting in right upper quadrant abdomen which could represent gallstones. Visualized solid organ contours appear normal. Bones: No suspicious bony lesions. IMPRESSION: Suggestion of moderate constipation and fecal impaction. No gross free air. Likely cholelithiasis which was also seen on previous CT study from 2013. No acute cardiopulmonary pathology. Dictated by: Devante Rapp M.D. on 03/24/2022 at 15:41 Approved by: Devante Rapp M.D. on 03/24/2022 at 15:42
[2022-03-24 15:05] LABS: Add Manual Diff / Slide Review NO; Basophils Absolute Auto 100 /uL (0-100); Basophils Percent Auto 0.5 % (0-2); Eosinophils Absolute Auto 0 /uL (0-450); Eosinophils Percent Auto 0.2 % (2-4); Hematocrit 43.1 % (36-46); Hemoglobin 14.1 g/dL (12.0-16.0); Lymphocytes Absolute Auto 900 /uL (1100-4500); Lymphocytes Percent Auto 5.9 % (25-40); Mean Corpuscular HGB Conc 32.6 % (30-36); Mean Corpuscular Hemoglobin 30.3 PG (26-34); Mean Corpuscular Volume 92.9 fL (80-100); Monocytes Absolute Auto 500 /uL (0-900); Neutrophils Absolute Auto 13500 /uL (1500-7000); Neutrophils Percent Auto 90.4 % (50-75); Platelet Count 334 X10^3/uL (150-400); Red Blood Cell Count 4.65 X10^6/uL (4.0-5.2); Red Cell Distribution Width 13.5 % (11.6-14.8)
--- NOTE | 2022-03-24 15:18 | PC.NURSE ---
COVID swab performed at this time
--- NOTE | 2022-03-24 15:20 | PC.NURSE ---
to radiology via stretcher with tech
[2022-03-24 15:24] LABS: Alanine Aminotransferase 23 IU/L (<35); Albumin 4.7 g/dL (3.5-5.0); Albumin Globulin Ratio 1.3 (1.0-2.8); Alkaline Phosphatase 78 U/L (38-126); Aspartate Aminotransferase 27 IU/L (14-36); BUN Creatinine Ratio 25.5 (6-22); Bilirubin Total 0.5 mg/dL (0.2-1.3); Blood Urea Nitrogen 14 mg/dL (7-17); Calcium 9.4 mg/dL (8.4-10.2); Carbon Dioxide 26 mmol/L (22-32); Chloride 100 mmol/L (98-107); Estimated Glomerular Filt Rate > 60 mL/min (>60); Globulin 3.7 g/dL (1.7-4.1); Glucose 139 mg/dL (80-110); HEMOLYSIS < 15 (0-50); Lipase 53 U/L (23-300); Potassium 3.9 mmol/L (3.4-5.1); Sodium 139 mmol/L (137-145); Total Protein 8.4 g/dL (6.3-8.2)
--- NOTE | 2022-03-24 15:35 | PC.NURSE ---
Returns to the ER from radiology
[2022-03-24 16:10] LABS: Influenza A - CEPHEID Flu A NEGATIVE (NEGATIVE); Influenza B - CEPHEID Flu B NEGATIVE (NEGATIVE); Respiratory Syncytial Virus Negative (Negative)
[2022-03-24 16:11] LABS: COVID-19 CEPHEID 4-PLEX PCR Negative (Negative)
--- NOTE | 2022-03-24 16:20 | DI.CT.S_ITS ---
PROCEDURE: CT ABDOMEN PELVIS W CON INDICATIONS: vomiting TECHNIQUE: After the administration of intravenous contrast, axial sections acquired from the lung bases to the pubic symphysis. Coronal and sagittal reformats were performed. For radiation dose reduction, the following was used: automated exposure control, adjustment of mA and/or kV according to patient size. COMPARISON: [facility], CT, ABDOMEN/PELVIS WITH CONTRAST, 09/12/2013, 17:22. FINDINGS: Lower thorax: The lung bases are clear. Heart size normal. No hiatal hernia. Liver: Subcentimeter hypodensities likely reflects cysts. No focal mass lesion Biliary system: Calcified stones noted in the lumen of the gallbladder. No pericholecystic inflammatory change. No intra or extrahepatic bile duct dilation. Pancreas: Unremarkable without mass or inflammation evident. Spleen: Normal in size and density. Adrenals: Normal morphology and density. Reproductive system: Left adnexal cyst measures 3 cm. No free fluid. . Urinary system: Normal renal size and attenuation. No renal calculi, hydronephrosis, or solid mass present. Urinary bladder unremarkable. Gastrointestinal system: The bowel is unremarkable without evidence of bowel obstruction or inflammation. The stomach appears unremarkable. Multiple diverticula arise from the sigmoid colon without evidence of diverticulitis. Moderate fecal debris in the left colon. Focal wall thickening in the mid transverse colon noted on image 2/42 Appendix: No findings to suggest acute appendicitis. Peritoneal spaces: No mesenteric or retroperitoneal adenopathy. No free air. No free fluid. Vasculature: Aortic atherosclerotic vascular calcification noted without evidence of aneurysm. Abdominal wall: Abdominal wall intact without evidence of ventral or inguinal hernias. Musculoskeletal: Normal bone mineralization. Degenerative disc disease and arthropathy noted in lower lumbar spine. No acute fractures. IMPRESSION: 1. No acute CT findings in the abdomen and pelvis. 2. Focal circumferential wall thickening in the mid transverse colon may reflect peristalsis. Nevertheless, consider follow-up CT or direct visualization when patient condition improves to exclude underlying neoplasm. 3. Additional chronic findings as above Approved by: Addison Andrade M.D. on 03/24/2022 at 15:46
--- NOTE | 2022-03-24 16:22 | ED.NAVMDI ---
HPI - Nausea/Vomiting/Diarrhea General Chief complaint: Nausea/Vomiting/Diarrhea Stated complaint: throwing up bile since 6am Time Seen by Provider: 03/24/22 16:14 Source: patient Mode of arrival: Ambulatory History of Present Illness HPI Narrative: Patient is a 86-year-old female history of hypertension appendectomy presenting today with vomiting. She said she was in her normal state of health yesterday. This morning she started vomiting she is unable to keep anything down. She denies any fever or chills. She is absolutely no chest pain or shortness of breath. She denies any constipation saying that she is had bowel movements but it is not diarrhea. Related Data Home Medications Medication Instructions Recorded Confirmed ACETAMINOPHEN 650 mg PO Q6HP PRN #0 tabs 01/07/13 CALCIUM/VITAMIN D (OS-LAUREANO 500+D 1 ctb PO ##0 01/07/13 500MG/400UNITS) [SALMON OIL W/OMAG 3] 3 tab PO QDAY ##0 01/07/13 amlodipine 5 mg tablet 5 mg PO DAILY 05/23/18 07/01/18 losartan 50 mg tablet 50 mg PO BID 05/23/18 07/01/18 pravastatin 40 mg tablet 40 mg PO DAILY 05/23/18 07/01/18 Previous Rx's Medication Instructions Recorded acetaminophen 300 mg-codeine 30 mg 1 tab PO Q4HP PRN #15 tabs 04/10/17 tablet prednisone 10 mg tablet See Rx Instructions .Route 07/01/18 .COMPLEX #12 tabs ondansetron 4 mg disintegrating 4 mg PO Q8H PRN nausea and 11/01/21 tablet vomiting #10 tabs cephalexin 500 mg capsule 500 mg PO BID 7 days #14 caps 03/24/22 ondansetron 4 mg disintegrating 4 mg PO Q8H PRN nausea and 03/24/22 tablet vomiting #10 tabs Allergies Allergy/AdvReac Type Severity Reaction Status Date / Time lisinopril [LISINOPRIL] AdvReac Mild COUGH Verified 04/05/20 14:53 Review of Systems Review of Systems Narrative: GENERAL: Denies chills, fatigue, malaise, fever, sweats, travel HEENT: Denies sinus pain, ear pain, sore throat, difficulty swallowing, neck pain RESPIRATORY: Denies dyspnea, cough, wheezing, hemoptysis, sputum. CARDIOVASCULAR: Denies chest pain, palpitations, orthopnea, edema GASTROINTESTINAL: See HPI : Denies dysuria, frequency, incontinence, hematuria, urinary retention, flank pain. MUSCULOSKELETAL: Denies weakness, joint pain, or bony pain SKIN: No rash, no erythema, no pruritus NEUROLOGIC: Denies weakness, dizziness, headache, numbness, change in speech, confusion PSYCHIATRIC: No concerning psychosocial issues. 12 point review of systems is negative except for those stated above and HPI Patient History Social History Smoking Status: Never smoker Smoking Status: Never smoker alcohol intake frequency: holidays/special occasions only Substance Use Type: does not use Exam Initial Vital Signs Initial Vital Signs: Vital Signs Temperature 98.2 F 03/24/22 11:49 Pulse Rate 109 H 03/24/22 11:49 Respiratory Rate 18 03/24/22 11:49 Blood Pressure 161/77 H 03/24/22 11:49 Pulse Oximetry 96 03/24/22 11:49 Oxygen Delivery Method 03/24/22 11:49 GENERAL: Adorable 86-year-old female HEENT: Head atraumatic,EOMI, pupils reactive, face symmetric, [moist] mucous membranes CARDIOVASCULAR: Regular rate and rhythm without murmurs, rubs or gallops. RESPIRATORY: Breath sounds equal bilaterally, no wheezes rales or rhonchi. ABDOMEN: Soft, nondistended no guarding no rebound no localization of pain EXTREMITIES: Normal range of motion, no clubbing or edema. Neurovascularly intact NEUROLOGICAL: Alert and oriented x4. SKIN: Warm, dry, no laceration, no petechiae, no rashes or lesions. Course Orders Ordered: Discontinued Medications Sodium Chloride (Normal Saline 0.9%) 1,000 mls @ 1,000 mls/hr IV BOLUS ONE Stop: 03/24/22 17:13 Last Infusion: 03/24/22 17:45 Dose: 0 mls/hr Documented By: Admin: 03/24/22 16:42 Dose: 1,000 mls/hr Documented By: GUICHO Ceftriaxone Sodium 1,000 mg/ (Sodium Chloride) 100 mls @ 200 mls/hr IV NOW ONE Stop: 03/24/22 18:33 Last Admin: 03/24/22 18:42 Dose: 200 mls/hr Documented By: SB Ondansetron HCl (Ondansetron 4 Mg Odt) 4 mg PO NOW PRN PRN Reason: Nausea And Vomiting Ondansetron HCl (Ondansetron 4 Mg/2 Ml Inj) 4 mg IV NOW PRN PRN Reason: Nausea And Vomiting Ondansetron HCl (Ondansetron 4 Mg Odt Prepack) 1 bottle MISC SEEINSTR ONE Stop: 03/24/22 18:34 Last Admin: 03/24/22 18:43 Dose: 1 bottle Documented By: SHAHEED Vital Signs Vital signs: Vital Signs - 8 hr 03/24/22 11:49 Temperature 98.2 F Pulse Rate 109 H Respiratory Rate 18 Blood Pressure 161/77 H Pulse Oximetry 96 Oxygen Delivery Method Room Air MDM - Nausea/Vomiting/Diarrhea Lab Data Result diagrams: 03/24/22 14:54 03/24/22 14:54 Labs: Lab Results 03/24/22 03/24/22 03/24/22 Range/Units 14:54 14:54 14:54 WBC 15.0 H (4.5-11.0) X10^3/uL RBC 4.65 (4.0-5.2) X10^6/uL Hgb 14.1 (12.0-16.0) g/dL Hct 43.1 (36-46) % MCV 92.9 (80-100) fL MCH 30.3 (26-34) PG MCHC 32.6 (30-36) % RDW 13.5 (11.6-14.8) % Plt Count 334 (150-400) X10^3/uL Neut % (Auto) 90.4 H (50-75) % Lymph % (Auto) 5.9 L (25-40) % [place] % (Auto) 3.0 (3-14) % Eos % (Auto) 0.2 L (2-4) % Baso % (Auto) 0.5 (0-2) % Neut # (Auto) 96112 H (0752-9684) /uL Lymph # (Auto) 900 L (6137-7062) /uL [place] # (Auto) 500 (0-900) /uL Eos # (Auto) 0 (0-450) /uL Baso # (Auto) 100 (0-100) /uL Sodium 139 (137-145) mmol/L Potassium 3.9 (3.4-5.1) mmol/L Chloride 100 (98-107) mmol/L Carbon Dioxide 26 (22-32) mmol/L BUN 14 (7-17) mg/dL Creatinine 0.55 (0.52-1.04) mg/dL Estimated GFR > 60 (>60) mL/min BUN/Creatinine Ratio 25.5 H (6-22) Glucose 139 H (80-110) mg/dL Lactate 1.9 (0.7-2.1) mmol/L Calcium 9.4 (8.4-10.2) mg/dL Total Bilirubin 0.5 (0.2-1.3) mg/dL AST 27 (14-36) IU/L ALT 23 (<35) IU/L Alkaline Phosphatase 78 (38-126) U/L Total Protein 8.4 H (6.3-8.2) g/dL Albumin 4.7 (3.5-5.0) g/dL Globulin 3.7 (1.7-4.1) g/dL Albumin/Globulin Ratio 1.3 (1.0-2.8) Lipase 53 (23-300) U/L Urine RBC (0-5/HPF) Urine WBC (0-5/HPF) Ur Squamous Epith Cells (0-5/HPF) Urine Bacteria (None) SARS-CoV-2 (PCR) (Negative) Influenza A (RT-PCR) (NEGATIVE) Influenza B (RT-PCR) (NEGATIVE) RSV (PCR) (Negative) 03/24/22 03/24/22 Range/Units 15:18 18:15 WBC (4.5-11.0) X10^3/uL RBC (4.0-5.2) X10^6/uL Hgb (12.0-16.0) g/dL Hct (36-46) % MCV (80-100) fL MCH (26-34) PG MCHC (30-36) % RDW (11.6-14.8) % Plt Count (150-400) X10^3/uL Neut % (Auto) (50-75) % Lymph % (Auto) (25-40) % [place] % (Auto) (3-14) % Eos % (Auto) (2-4) % Baso % (Auto) (0-2) % Neut # (Auto) (2464-9696) /uL Lymph # (Auto) (9106-9939) /uL [place] # (Auto) (0-900) /uL Eos # (Auto) (0-450) /uL Baso # (Auto) (0-100) /uL Sodium (137-145) mmol/L Potassium (3.4-5.1) mmol/L Chloride (98-107) mmol/L Carbon Dioxide (22-32) mmol/L BUN (7-17) mg/dL Creatinine (0.52-1.04) mg/dL Estimated GFR (>60) mL/min BUN/Creatinine Ratio (6-22) Glucose (80-110) mg/dL Lactate (0.7-2.1) mmol/L Calcium (8.4-10.2) mg/dL Total Bilirubin (0.2-1.3) mg/dL AST (14-36) IU/L ALT (<35) IU/L Alkaline Phosphatase (38-126) U/L Total Protein (6.3-8.2) g/dL Albumin (3.5-5.0) g/dL Globulin (1.7-4.1) g/dL Albumin/Globulin Ratio (1.0-2.8) Lipase (23-300) U/L Urine RBC 1-5/hpf (0-5/HPF) Urine WBC 5-10/hpf H (0-5/HPF) Ur Squamous Epith Cells 5-10 /hpf H (0-5/HPF) Urine Bacteria Moderate (10-30) H (None) SARS-CoV-2 (PCR) Negative (Negative) Influenza A (RT-PCR) Flu a negative (NEGATIVE) Influenza B (RT-PCR) Flu b negative (NEGATIVE) RSV (PCR) Negative (Negative) Urine Dip Bedside Urine Glucose Negative Bedside Urine Bilirubin - Negative Bedside Urine Ketone - Negative Urine Specific [place] 1.015 Bedside Urine Occult Blood +/- Bedside Urine pH 6.0 Bedside Urine Protein + 30 Bedside Urine Urobilinogen - Negative Bedside Urine Nitrite - Negative Bedside Urine Leukocytes ++ 125 Esterase Imaging Data Abdominal x-ray: Radiologist's Impression: XRay Report Signed Patient: Amna Chin MR#: [id number] : 1935 Acct:[id number] Age/Sex: 86 / F Date of Service: 03/24/22 Loc: ED Accession Number: [id number] ?? Procedure: XR acute abdomen series Ordering Provider: Giselle Cain D.O. PROCEDURE:? XR ACUTE ABDOMEN SERIES ? INDICATIONS:? persistant vomiting ? TECHNIQUE:? One view chest and two views of the abdomen were acquired.? ? COMPARISON:? [facility], CT, ABDOMEN/PELVIS WITH CONTRAST, 09/12/2013, 17:22. ? FINDINGS:? ? Surgical changes and devices:? There is prior right shoulder arthroplasty. ? Chest:? Lungs are clear.? Heart size is normal.? No pleural effusions.? No pneumoperitoneum.? ? Abdomen:? Bowel gas pattern is nonobstructive.? Large amount of fecal matter throughout the colon is seen extending to rectum.? Multiple round calcifications are seen projecting in right upper quadrant abdomen which could represent gallstones.? Visualized solid organ contours appear normal.? ? Bones:? No suspicious bony lesions.? ? IMPRESSION:? Suggestion of moderate constipation and fecal impaction.? No gross free air. ?Likely cholelithiasis which was also seen on previous CT study from 2013. No acute cardiopulmonary pathology.? ? ? Dictated by: Devante Rapp M.D. on 03/24/2022 at 15:41 ? ? Approved by: Devante Rapp M.D. on 03/24/2022 at 15:42 ? CT scan - abdomen/pelvis: Radiologist's Impression: Acct:[id number] Age/Sex: 86 / F Date of Service: 03/24/22 Loc: ED Accession Number: [id number] ?? Procedure: CT abdomen pelvis w con Ordering Provider: Giselle Cain D.O. PROCEDURE:? CT ABDOMEN PELVIS W CON ? INDICATIONS:? vomiting ? TECHNIQUE:? After the administration of intravenous contrast, axial sections acquired from the lung bases to the pubic symphysis.? Coronal and sagittal reformats were performed.? For radiation dose reduction, the following was used:? automated exposure control, adjustment of mA and/or kV according to patient size.? ? COMPARISON:? [facility], CT, ABDOMEN/PELVIS WITH CONTRAST, 09/12/2013, 17:22. ? FINDINGS: ? Lower thorax: The lung bases are clear.? Heart size normal.? No hiatal hernia. ? Liver:? Subcentimeter hypodensities likely reflects cysts.? No focal mass lesion ? Biliary system:? Calcified stones noted in the lumen of the gallbladder.? No pericholecystic inflammatory change.? No intra or extrahepatic bile duct dilation. ? Pancreas:? Unremarkable without mass or inflammation evident. ? Spleen:? Normal in size and density. ? Adrenals:? Normal morphology and density. ? Reproductive system:? Left adnexal cyst measures 3 cm.? No free fluid. . ? Urinary system:? Normal renal size and attenuation. No renal calculi, hydronephrosis, or solid mass present.? Urinary bladder unremarkable. ? Gastrointestinal system:? The bowel is unremarkable without evidence of bowel obstruction or inflammation. The stomach appears unremarkable.? Multiple diverticula arise from the sigmoid colon without evidence of diverticulitis.? Moderate fecal debris in the left colon.? Focal wall thickening in the mid transverse colon noted on image 2/42 ? Appendix:? No findings to suggest acute appendicitis. ? Peritoneal spaces:? No mesenteric or retroperitoneal adenopathy.? No free air.? No free fluid.? ? Vasculature:? Aortic atherosclerotic vascular calcification noted without evidence of aneurysm. ? Abdominal wall:? Abdominal wall intact without evidence of ventral or inguinal hernias. ? Musculoskeletal:? Normal bone mineralization.? Degenerative disc disease and arthropathy noted in lower lumbar spine.? No acute fractures.? ? IMPRESSION: ? 1. No acute CT findings in the abdomen and pelvis. ? 2. Focal circumferential wall thickening in the mid transverse colon may reflect peristalsis.? Nevertheless, consider follow-up CT or direct visualization when patient condition improves to exclude underlying neoplasm. ? 3. Additional chronic findings as above ? Approved by: Addison Andrade M.D. on 03/24/2022 at 15:46? ECG Data Interpretation: Normal sinus rhythm rate 99 IL interval 160 QRS [address] changes MDM Narrative Medical decision making narrative: Patient 86-year-old female presenting today with nausea vomiting. She is mild leukocytosis of 15 she is afebrile. Lactic acid is 1.9. She does have history of appendectomy initially abdominal x-ray was done does show constipation patient is having bowel movements not complaining of constipation. CT does not show any abnormality or obstruction. She is tolerating fluids Zofran has helped. She does have leukocytes in her urine with bacteria possible UTI. But she is not septic. Vitals are stable. She is no epigastric pain or chest pain. Unlikely to be acute coronary syndrome or cardiac disease. Patient is ambulatory to the restroom without any difficulty tolerating fluids. She is given 1 dose of Rocephin here in the ED and prescription for Keflex and Zofran. At this time there is no need for admission to the hospital. Strict return precautions discussed with both and son at bedside. Differential diagnosis includes bowel obstruction cholelithiasis, sepsis, viral syndrome Discharge Plan Departure Patient Disposition: Home Clinical Impression: Acute UTI Instructions: DI for Urinary Tract Infection (UTI) Activity Restrictions/Additional Instructions: *You have been diagnosed with UTI with nausea and vomiting *What to do: Increase fluids as tolerated recommend Gatorade or Gatorade like product. Go slowly may advance diet as tolerated. I suspect that your nausea and vomiting is from the bladder infection. Please start your antibiotics tomorrow as directed *Continue to take medications as directed--> SENT TO [facility] Zofran 4 mg every 8 hours if needed for nausea or vomiting Keflex 500 mg twice a day for 7 days *Follow up with your primary care provider in 2-3 days or call [phone] *Return to ER if you should have persistent vomiting not tolerating fluids, increased confusion increased abdominal pain fever or any new, worsening or concerning symptoms Prescriptions: New cephalexin 500 mg capsule 500 mg PO BID 7 Days Qty: 14 0RF ondansetron 4 mg tablet,disintegrating 4 mg PO Q8H PRN (Reason: nausea and vomiting) Qty: 10 0RF No Action ACETAMINOPHEN 650 mg PO Q6HP PRNQty: 0 [SALMON OIL W/OMAG 3] 3 tab PO QDAY Qty: 0 CALCIUM/VITAMIN D (OS-LAUREANO 500+D 500MG/400UNITS) 1 ctb PO Qty: 0 acetaminophen-codeine 30 MG/300 MG tablet 1 tab PO Q4HP PRNQty: 15 0RF losartan 50 mg tablet 50 mg PO BID pravastatin 40 mg tablet 40 mg PO DAILY amlodipine 5 mg tablet 5 mg PO DAILY prednisone 10 mg tablet See Rx Instructions .ROUTE .COMPLEX Qty: 12 0RF Rx Instructions: Take 3 tablets daily x 2 days, then 2 tablets daily x 2 days, then 1 tablet x 2 days. ondansetron 4 mg tablet,disintegrating 4 mg PO Q8H PRN (Reason: nausea and vomiting) Qty: 10 0RF Referrals: Martínez Lake MD [Primary Care Provider] - Visit Report Forms: Patient Portal/API
[2022-03-24 16:29] LABS: Lactate (Lactic Acid) 1.9 mmol/L (0.7-2.1)
--- NOTE | 2022-03-24 16:30 | PC.NURSE ---
Report to NEELA Lui for break relief
[2022-03-24] MEDS: SODIUM CHLORIDE 0.9% 1,000 ML 1000 ML IV (16:42)
--- NOTE | 2022-03-24 17:00 | PC.NURSE ---
report received - assumed care of pt at this time
--- NOTE | 2022-03-24 17:45 | PC.NURSE ---
Family to bedside - sitting quietly on stretcher in NAD - no needs voiced
--- NOTE | 2022-03-24 18:15 | PC.NURSE ---
Ambulatory to the bathroom with steady gait - clean catch UA collected - small amount noted
[2022-03-24] MEDS: cefTRIAXone 1,000 MG in SODIUM CHLORIDE 0.9% 100 ML 200 MG IV (18:42)
[2022-03-24] MEDS: ONDANSETRON 4 MG ODT PREPACK 1 BOTTLE MISC (18:43)
[2022-03-24 18:55] LABS: Bacteria Urine Moderate (10-30); RBC Urine 1-5/HPF (0-5/HPF); Squamous Epithelial Cell Urine 5-10 /HPF (0-5/HPF); WBC Urine 5-10/HPF (0-5/HPF)
[2022-03-24 19:00] VITALS: BP 171/86; PULSE 104; RESP 18; O2SAT 98
--- NOTE | 2022-03-24 19:13 | PC.NURSE ---
report to Niko, RN - care relinquished at this time
[2022-03-24 19:37] VITALS: BP 144/72; PULSE 82; RESP 16; TEMP 36.6; O2SAT 95
== END 2022-03-24 19:35 | disposition home or self-care (01) ==
PROVIDERS: Emergency Provider Emergency Medicine; Family Provider Internal Medicine; PCP Internal Medicine
DX: N39.0 Urinary tract infection, site not specified (principal); R11.2 Nausea with vomiting, unspecified; R03.0 Elevated blood-pressure reading, without diagnosis of hypertension
CPT/HCPCS: 0241U; 36415; 74022; 74177; 80053; 81003; 81015; 83605; 83690; 85025; 87086; 93005; 96374; 99284; J0696; Q9967

== ENCOUNTER 2022-10-06 12:14 | Emergency (ER) | payer MEDICARE, SELFPAY ==
[2022-10-06 12:16] VITALS: BP 186/86; PULSE 89; RESP 16; TEMP 36.8; O2SAT 96; BMI 26.6
--- NOTE | 2022-10-06 12:23 | DI.CT.S_ITS ---
PROCEDURE: CT CERVICAL SPINE WO CON INDICATIONS: fall with facial injury TECHNIQUE: Noncontrast 3 mm thick sections acquired from the skull base to the T4 level. Sagittal and coronal reformats were then constructed. For radiation dose reduction, the following was used: automated exposure control, adjustment of mA and/or kV according to patient size. COMPARISON: None. FINDINGS: Image quality: Excellent. Bones: No fractures or dislocations. Visualized superior ribs are intact. The cervical spine has multilevel degenerative changes and multilevel disc disease. Soft tissues: Prevertebral soft tissues are normal in thickness. No paravertebral hematomas. No apical pneumothoraces. IMPRESSION: 1. No acute traumatic abnormality of the cervical spine. 2. Multilevel degenerative changes. Dictated by: Ronaldo Montejo M.D. on 10/06/2022 at 13:08 Approved by: Ronaldo Montejo M.D. on 10/06/2022 at 13:09
--- NOTE | 2022-10-06 12:23 | DI.CT.S_ITS ---
PROCEDURE: CT FACIAL BONES WO CON INDICATIONS: fall with facial injury TECHNIQUE: Noncontrast 2.5 mm thick axial images acquired from the mandible through the frontal sinuses, with coronal and sagittal reformatting. For radiation dose reduction, the following was used: automated exposure control, adjustment of mA and/or kV according to patient size. COMPARISON: None. FINDINGS: Image quality: Excellent. Bones and teeth: Orbital lopez are intact. Sinus lopez show no fracture or deformity. Nasal bones and septum are intact. Visualized portions of the mandible demonstrate no fractures or subluxation. Zygomatic arches are intact. Pterygoid plates are intact. Visualized portions of the skull base and auditory canals are intact. Sinuses: Paranasal sinuses are aerated, without fluid levels, mucosal thickening, or mucoceles. Mastoid air cells are aerated. Soft tissues: No edema, masses, or fluid collections. No enlarged lymph nodes. No soft tissue lacerations or debris. Vascular: Visualized vascular structures appear normal in the absence of contrast. Bony vascular foramina and canals are intact. IMPRESSION: No acute traumatic abnormality of the facial bones. Dictated by: Ronaldo Montejo M.D. on 10/06/2022 at 13:06 Approved by: Ronaldo Montejo M.D. on 10/06/2022 at 13:07
--- NOTE | 2022-10-06 12:25 | ED.GENADULT ---
HPI - General Adult General Chief complaint: Fall Stated complaint: fell on face Time Seen by Provider: 10/06/22 12:23 History of Present Illness HPI narrative: 87-year-old female nonsmoker with history of hypertension presents for evaluation of injury suffered as a consequence of a ground level fall. She states that she was walking and tripped and fell forward striking her face. She has full recall and denies any loss of consciousness. She does not take blood thinners. She denies blurred vision or vomiting. She denies any neck or back pain. She denies chest pain, shortness of breath. She suffered a laceration of her upper lip and knocked at least 1 tooth out, she states that she has a bridge. Related Data Home Medications Medication Instructions Recorded Confirmed ACETAMINOPHEN 650 mg PO Q6HP PRN #0 tabs 01/07/13 CALCIUM/VITAMIN D (OS-LAUREANO 500+D 1 ctb PO ##0 01/07/13 500MG/400UNITS) [SALMON OIL W/OMAG 3] 3 tab PO QDAY ##0 01/07/13 amlodipine 5 mg tablet 5 mg PO DAILY 05/23/18 07/01/18 losartan 50 mg tablet 50 mg PO BID 05/23/18 07/01/18 pravastatin 40 mg tablet 40 mg PO DAILY 05/23/18 07/01/18 Previous Rx's Medication Instructions Recorded acetaminophen 300 mg-codeine 30 mg 1 tab PO Q4HP PRN #15 tabs 04/10/17 tablet prednisone 10 mg tablet See Rx Instructions .Route 07/01/18 .COMPLEX #12 tabs ondansetron 4 mg disintegrating 4 mg PO Q8H PRN nausea and 11/01/21 tablet vomiting #10 tabs ondansetron 4 mg disintegrating 4 mg PO Q8H PRN nausea and 03/24/22 tablet vomiting #10 tabs amoxicillin 875 mg-potassium 1 tab PO Q12H #20 tabs 10/06/22 clavulanate 125 mg tablet hydrocodone 5 mg-acetaminophen 325 1 tab PO Q4-6H PRN pain #10 tabs 10/06/22 mg tablet ondansetron 4 mg disintegrating 4 mg PO TID-QID PRN nausea and 10/06/22 tablet vomiting #10 tabs Allergies Allergy/AdvReac Type Severity Reaction Status Date / Time lisinopril [LISINOPRIL] AdvReac Mild COUGH Verified 10/06/22 12:28 Review of Systems Review of Systems Narrative: GENERAL: Denies chills, fatigue, malaise, fever, sweats. HEENT: See HPI RESPIRATORY: Denies dyspnea, cough, wheezing, hemoptysis, sputum. CARDIOVASCULAR: Denies chest pain, palpitations, orthopnea, edema, GASTROINTESTINAL: Denies nausea, vomiting, abdominal pain, diarrhea, constipation, melena. : Denies dysuria, frequency, incontinence, hematuria, urinary retention. MUSCULOSKELETAL: denies weakness, joint pain, or bony pain SKIN: Denies rash, skin lesions, or other NEUROLOGIC: Denies weakness, headache, numbness, change in speech, confusion, seizures, incoordination. PSYCHIATRIC: No concerning psychosocial issues. 12 point review of systems is negative except for those stated above Patient History Social History Smoking Status: Never smoker Smoking Status: Never smoker alcohol intake frequency: holidays/special occasions only Substance Use Type: does not use Exam Narrative Exam Narrative: GENERAL: [87] year old patient appears stated age. Well-developed patient, in mild distress. GCS 15 HEAD: Atraumatic. Normocephalic. EYES: Pupils equal round and reactive. No hyphema Extraocular motions intact. No scleral icterus. No injection or drainage. ENT: Upper lip has a 1 cm through and through laceration in the midline just above the vermilion border. She has lost tooth #7 and has a partial fracture of #8. Nose without bleeding, purulent drainage. No nasal septal hematoma Throat without erythema, tonsillar hypertrophy or exudate. Airway patent. NECK: Trachea midline. Non tender CARDIOVASCULAR: Regular rate and rhythm without murmurs, gallops, or rubs. RESPIRATORY: Clear to auscultation. Breath sounds equal bilaterally. No wheezes, rales, or rhonchi. GASTROINTESTINAL: Abdomen soft, non-tender, nondistended. EXTREMITIES: No edema or joint tenderness. BACK: Nontender without deformity or crepitance. No flank tenderness. NEURO: AOx3. SKIN: No rash or erythema of visible areas Initial Vital Signs Initial Vital Signs: Vital Signs Temperature 98.2 F 10/06/22 12:16 Pulse Rate 89 10/06/22 12:16 Respiratory Rate 16 10/06/22 12:16 Blood Pressure 186/86 H 10/06/22 12:16 Pulse Oximetry 96 10/06/22 12:16 Oxygen Delivery Method Room Air 10/06/22 12:16 Procedures Laceration Repair Laceration 1: Site: lip Size (cm): 1.0 Description: flap Depth: simple, single layer Local Anesthetic: lidocaine 1% Amount of anesthesia used (mL): 3 Pre-repair: wound explored and cleansed with chlorhexadine Skin layer closed with: nylon Skin layer suture size: 6-0 Number of sutures: 3 Technique: simple, interrupted Course Orders Ordered: ED Orders 10/06/22 12:23 CT cervical spine wo con Stat CT facial bones wo con Stat 10/06/22 12:43 CT head/brain wo con Stat Discontinued Medications Hydrocodone Bitart/Acetaminophen (Hydrocodone/Acet 5/325 Prepack) 1 bottle MISC SEEINSTR ONE Stop: 10/06/22 13:43 Last Admin: 10/06/22 13:50 Dose: 1 bottle Documented By: LOVELY Hydrocodone Bitart/Acetaminophen (Hydrocodone/Acet 5/325 Tablet) 1 tab PO NOW ONE Stop: 10/06/22 13:47 Last Admin: 10/06/22 13:50 Dose: 1 tab Documented By: LOVELY Amoxicillin/Clavulanate Potassium (Amoxicillin/Clav 875/125 Mg) 1 tab PO NOW ONE Stop: 10/06/22 14:38 Last Admin: 10/06/22 14:43 Dose: 1 tab Documented By: OTILIA Vital Signs Vital signs: Vital Signs - 8 hr 10/06/22 12:16 10/06/22 14:42 10/06/22 14:43 Temperature 98.2 F Pulse Rate 89 90 Respiratory Rate 16 Blood Pressure 186/86 H 161/70 H Pulse Oximetry 96 96 Oxygen Delivery Method Room Air 10/06/22 14:43 10/06/22 15:02 10/06/22 15:02 Temperature Pulse Rate 84 65 Respiratory Rate Blood Pressure 128/61 Pulse Oximetry 97 94 Oxygen Delivery Method Room Air Medical Decision Making [facility] Narrative Medical decision making narrative: [87] year old patient presents with fall with facial laceration Multiple etiologies for patient's symptoms considered including, but not limited to: [Intracranial] Prior Charts reviewed in our EMR Primary Historian: patient Imaging reviewed: CT of head facial bones and C-spine without acute findings Patient's symptoms improved over duration of stay with above-stated therapies. Findings and discharge diagnosis discussed with patient/family followed by verbalization of understanding Return precautions discussed with patient/family whom verbalize understanding of diagnosis and plan Discharge Plan Departure Patient Disposition: Home Clinical Impression: Avulsion fracture of tooth, Complicated laceration of lip Instructions: How to Prevent Falls Activity Restrictions/Additional Instructions: *You have been diagnosed with [ground level fall with complex upper lip laceration, dental avulsion and dental fracture. As we discussed CTs of your head, facial bones and cervical spine are unremarkable and absent of any fracture, dislocation or bleeding] *What to do: *Please continue to take your regular medications as directed. [x ] New medication prescriptions sent to your pharmacy: [[facility] ] [ ] New medication written as a paper prescription [ ] No new medications given *Please follow up with your primary care provider in 2-3 days, call for an appointment. Let them know you were seen in the Emergency Department and that we ask that you be seen in follow up. We will electronically transmit a record of today's note if your PCP is in our system *Return to Emergency Department if you should have any new, worsening or concerning symptoms, such as [fever greater than 101 F, shaking chills, worsening pain, persistent vomiting or other bothersome symptoms] You have been prescribed a short course of narcotic medications. These are potentially dangerous and addictive medications that should be used carefully. While on these medications you cannot drive or operate heavy machinery. Additionally, you cannot sign legal documents or perform any duties such as this. 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 Please understand that we cannot provide further refills of narcotics or controlled substances through the ED and your pain management will need to be through your Primary Care Provider Prescriptions: New hydrocodone-acetaminophen 5-325 mg tablet 1 tab PO Q4-6H PRN (Reason: pain) Qty: 10 0RF ondansetron 4 mg tablet,disintegrating 4 mg PO TID-QID PRN (Reason: nausea and vomiting) Qty: 10 0RF amoxicillin-pot clavulanate 875-125 mg tablet 1 tab PO Q12H Qty: 20 0RF No Action ACETAMINOPHEN 650 mg PO Q6HP PRNQty: 0 [SALMON OIL W/OMAG 3] 3 tab PO QDAY Qty: 0 CALCIUM/VITAMIN D (OS-LAUREANO 500+D 500MG/400UNITS) 1 ctb PO Qty: 0 acetaminophen-codeine 30 MG/300 MG tablet 1 tab PO Q4HP PRNQty: 15 0RF losartan 50 mg tablet 50 mg PO BID pravastatin 40 mg tablet 40 mg PO DAILY amlodipine 5 mg tablet 5 mg PO DAILY prednisone 10 mg tablet See Rx Instructions .ROUTE .COMPLEX Qty: 12 0RF Rx Instructions: Take 3 tablets daily x 2 days, then 2 tablets daily x 2 days, then 1 tablet x 2 days. ondansetron 4 mg tablet,disintegrating 4 mg PO Q8H PRN (Reason: nausea and vomiting) Qty: 10 0RF ondansetron 4 mg tablet,disintegrating 4 mg PO Q8H PRN (Reason: nausea and vomiting) Qty: 10 0RF Referrals: Martínez Lake MD [Primary Care Provider] - Stand Alone Forms: Patient Portal/API
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
--- NOTE | 2022-10-06 13:42 | PC.NURSE ---
RETAIL AND RESTAURANT NOTE: ice pack given
[2022-10-06] MEDS: LIDOCAINE 1% 20 ML (13:47)
[2022-10-06] MEDS: HYDROCODONE/ACET 5/325 TABLET 1 TAB PO (13:50)
[2022-10-06] MEDS: HYDROCODONE/ACET 5/325 PREPACK 1 BOTTLE MISC (13:50)
[2022-10-06 14:42] VITALS: PULSE 90; O2SAT 96
[2022-10-06 14:43] VITALS: BP 161/70; PULSE 84; O2SAT 97
[2022-10-06] MEDS: AMOXICILLIN/CLAV 875/125 MG 1 TAB PO (14:43)
[2022-10-06 15:02] VITALS: BP 128/61; PULSE 65; O2SAT 94
== END 2022-10-06 14:54 | disposition home or self-care (01) ==
PROVIDERS: Emergency Provider Emergency Medicine; Family Provider Internal Medicine; PCP Internal Medicine
DX: S01.511A Laceration without foreign body of lip, initial encounter (principal); S02.5XXA Fracture of tooth (traumatic), initial encounter for closed fracture; W01.0XXA Fall on same level from slipping, tripping and stumbling without subsequent striking against object, initial encounter
CPT/HCPCS: 12011; 70450; 70486; 72125; 99284

== ENCOUNTER → 2022-11-11 17:56 | Outpatient (CLI) | payer MEDICARE, SELFPAY | PROVIDERS: Family Provider Internal Medicine; PCP Internal Medicine; Visit Provider Nurse Practitioner Family | DX: N39.0 Urinary tract infection, site not specified (principal) | CPT/HCPCS: 87077; 87086; 87186 ==

== ENCOUNTER 2025-03-25 18:04 | Emergency (ER) | payer MEDICARE, SELFPAY ==
[2025-03-25] VITALS (8 sets, daily range): BP systolic 133–197; BP diastolic 60–92; PULSE 91–95; RESP 16–26; TEMP 36.6–36.8; O2SAT 88–97; BMI 25.0
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
--- NOTE | 2025-03-25 18:11 | DI.CT.S_ITS ---
PROCEDURE: CT CERVICAL SPINE WO CON INDICATIONS: trauma TECHNIQUE: Noncontrast 3 mm thick sections acquired from the skull base to the T4 level. Sagittal and coronal reformats were then constructed. For radiation dose reduction, the following was used: automated exposure control, adjustment of mA and/or kV according to patient size. COMPARISON: [facility], CT, CT CERVICAL SPINE WO CON, 10/06/2022, 12:32. FINDINGS: Image quality: Excellent. Bones: No fractures or dislocations. Visualized superior ribs are intact. Degenerated disc osteophyte complex at C3-4, C5-6, C6-7. Degenerative changes in the superior thoracic spine. Degenerative facet arthrosis in the mid cervical spine. Degenerative ankylosis of the facet joints bilaterally at C3-4. Soft tissues: Prevertebral soft tissues are normal in thickness. No paravertebral hematomas. No apical pneumothoraces. IMPRESSION: No displaced fracture or traumatic subluxation. Dictated by: Farhan Sage M.D. on 03/25/2025 at 19:54 Approved by: Farhan Sage M.D. on 03/25/2025 at 19:56
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
[2025-03-25] MEDS: MORPHINE 2 MG/ML INJ IV ×2 (18:31→21:36)
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
[2025-03-25 19:00] LABS: INR 1.0 (0.9-1.3); Prothrombin Time 11.5 SECONDS (9.4-12.5)
[2025-03-25 19:11] LABS: Add Manual Diff / Slide Review NO; Hematocrit 39.6 % (36-46); Hemoglobin 13.5 g/dL (12.0-16.0); Lymphocytes Absolute Auto 2500 /uL (1100-4500); Mean Corpuscular HGB Conc 34.0 % (30-36); Mean Corpuscular Hemoglobin 31.2 PG (26-34); Mean Corpuscular Volume 91.9 fL (80-100); Platelet Count 285 X10^3/uL (150-400)
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
[2025-03-25 19:16] LABS: Alanine Aminotransferase 25 IU/L (<35); Albumin 4.7 g/dL (3.5-5.0); Albumin Globulin Ratio 1.6 (1.0-2.8); Alkaline Phosphatase 64 U/L (38-126); Blood Urea Nitrogen 17 mg/dL (7-17); Calcium 9.6 mg/dL (8.4-10.2); Carbon Dioxide 26 mmol/L (22-32); Chloride 103 mmol/L (98-107); Estimated Glomerular Filt Rate > 60 mL/min (>60); Globulin 3.0 g/dL (1.7-4.1); Glucose 146 mg/dL (70-99); HEMOLYSIS 29 (0-50); Potassium 3.8 mmol/L (3.4-5.1); Sodium 138 mmol/L (137-145); Total Protein 7.7 g/dL (6.3-8.2)
--- NOTE | 2025-03-25 21:26 | W.PC.EDHO ---
Handoff/shift report received from NEELA Moody
--- NOTE | 2025-03-25 21:28 | W.PC.EDHO ---
Handoff/shift report received from NEELA Etienne
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
== END 2025-03-26 00:10 | disposition short-term general hospital (02) ==
PROVIDERS: Emergency Provider Family Medicine; Family Provider Internal Medicine; PCP Internal Medicine
DX: S22.42XA Multiple fractures of ribs, left side, initial encounter for closed fracture (principal); S22.20XA Unspecified fracture of sternum, initial encounter for closed fracture; S60.222A Contusion of left hand, initial encounter; M79.89 Other specified soft tissue disorders; V89.2XXA Person injured in unspecified motor-vehicle accident, traffic, initial encounter
CPT/HCPCS: 70450; 71250; 72125; 73130; 74176; 80053; 85025; 85610; 96374; 96375; 99284; J2270